=== PATIENT | male | born 1955 | race Caucasian/White ===

== ENCOUNTER 2022-09-21 09:30 | Outpatient (CLI) | payer OTHER ==
[2022-09-21] MEDS ORDERED: DIATR MEGLU/DIATRIZ SOD 30 ML SOLUTION PO ONE (09:49)
== END 2022-09-21 21:03 | disposition home or self-care (01) ==
LOC: SRD 09:30
DX: R97.20 Elevated prostate specific antigen [PSA] (principal)
CPT/HCPCS: 78306; A9503; Q9964

== ENCOUNTER 2022-12-29 10:03 | Outpatient (CLI) | payer OTHER ==
[2022-12-29] MEDS ORDERED: CYSTOGRAFIN 300 ML INFUS..BTL UR ONE (10:59)
== END 2022-12-29 19:55 | disposition home or self-care (01) ==
LOC: SRD 10:03
PROVIDERS: ATTEND Urology
DX: C61 Malignant neoplasm of prostate (principal)
CPT/HCPCS: 74430; 51600; Q9958